=== PATIENT | female | born 2000 | race Asian ===

== ENCOUNTER 2020-09-19 03:45 | Emergency (ER) | payer OTHER ==
[~2020-09-19] VITALS: Ht 149.9 cm; Wt 49.9 kg
[2020-09-19 03:52] VITALS: BP 104/68
--- NOTE | 2020-09-19 03:55 | NUR ---
SEEN AND EXAMINED BY FLORIN WITH ORDERS AND CARRIED OUT.
[2020-09-19] MEDS ORDERED: ACETAMINOPHEN 325 MG TAB PO ONE (04:00)
--- NOTE | 2020-09-19 04:00 | NUR ---
PT AMBULATED TO [facility] WITH STEADY GAIT.
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
--- NOTE | 2020-09-19 04:39 | NUR ---
PT VERBALIZED NOT WANTING CT SCAN AT THIS TIME. STATES, "I FEEL FINE I AM OKAY". NOTIFIED DR. SÁNCHEZ OF PT'S REFUSAL. DR. SÁNCHEZ WILL SPEAK WITH PATIENT.
[2020-09-19] MEDS ORDERED: BACITRACIN OINT 500 UNITS/GM PKT TP ONE (04:40)
[2020-09-19 04:50] VITALS: BP 105/74
--- NOTE | 2020-09-19 04:53 | NUR ---
PATIENT BIB [facility]. PATIENT EXAMINED BY DR. SÁNCHEZ. PATIENT MEDICALLY CLEARED AND RELEASED IN CUSTODY IN STABLE CONDITION. ORIGINAL PRE-BOOK FORM GIVEN TO OFFICER GUILLERMINA #[id number].
== END 2020-09-19 04:53 ==
LOC: MED 03:45
DX: R04.0 Epistaxis (principal); M79.602 Pain in left arm; M79.601 Pain in right arm; V49.9XXA Car occupant (driver) (passenger) injured in unspecified traffic accident, initial encounter; Y93.89 Activity, other specified; Y92.89 Other specified places as the place of occurrence of the external cause; Y99.8 Other external cause status; Z02.89 Encounter for other administrative examinations
CPT/HCPCS: 99283